=== PATIENT | female | born 2000 | race Caucasian/White ===

== ENCOUNTER 2020-04-27 14:32 | Outpatient (REF) | payer MEDICAID, SELFPAY ==
--- NOTE | 2020-04-27 15:48 | XR_ITS ---
EXAMINATION: BILATERAL KNEES. CLINICAL INFORMATION: Bilateral knee pain. COMPARISON: None TECHNIQUE: 4 views each knee. FINDINGS: LEFT KNEE: The tricompartment joint space is maintained. No visible fracture, loose bodies, bony erosive changes or joint effusion seen. RIGHT KNEE: There is tricompartment joint space is maintained. There is no visible acute fracture, dislocation or subluxation. The tricompartment joint space is maintained normal. The soft tissues are normal. XR/XR knee LT 3V IMPRESSION: Unremarkable bilateral knee exam.
--- NOTE | 2020-04-27 15:48 | XR_ITS ---
EXAMINATION: BILATERAL KNEES. CLINICAL INFORMATION: Bilateral knee pain. COMPARISON: None TECHNIQUE: 4 views each knee. FINDINGS: LEFT KNEE: The tricompartment joint space is maintained. No visible fracture, loose bodies, bony erosive changes or joint effusion seen. RIGHT KNEE: There is tricompartment joint space is maintained. There is no visible acute fracture, dislocation or subluxation. The tricompartment joint space is maintained normal. The soft tissues are normal. XR/XR knee RT 3V IMPRESSION: Unremarkable bilateral knee exam.
[2020-04-27 16:01] LABS: MANUAL DIFF FLAG NO
[2020-04-27 16:07] LABS: Basophils Percent Auto 0.5 % (0-2); Eosinophils Absolute Auto 0.2 X10*3/uL (0.0-0.4); Eosinophils Percent Auto 2.2 % (0-4); Hematocrit 43.4 % (37-47); Hemoglobin 14.7 g/dl (12.0-16.0); Imm Gran Abs Auto 0.03 X10*3/uL (0.00-0.03); Imm Gran Pct Auto 0.4 % (0.0-0.4); Lymphocytes Absolute Auto 2.8 X10*3/uL (1.2-4.9); Lymphocytes Percent Auto 33.1 % (20-40); Mean Corpuscular HGB Conc 33.9 g/dl (31.0-35.0); Mean Corpuscular Hemoglobin 30.4 pg (27.0-33.0); Mean Corpuscular Volume 89.7 fL (80-98); Mean Platelet Volume 9.7 fL (9.4-12.3); Monocytes Absolute Auto 0.6 X10*3/uL (0.1-1.2); Monocytes Percent Auto 7.7 % (2-11); Neutrophils Absolute Auto 4.7 X10*3/uL (2.0-8.3); Neutrophils Percent Auto 56.1 % (45-73); Platelet Count 327 X10*3/uL (160-400); Red Blood Count 4.84 X10*6/uL (4.20-5.50); Red Cell Distribution Width 11.9 % (11.0-16.0); White Blood Count 8.3 X10*3/uL (4.8-10.8)
[2020-04-27 16:28] LABS: Alanine Aminotransferase 67 U/L (0-31); Albumin Level 4.3 g/dL (3.5-5.0); Alkaline Phosphatase 141 U/L (39-117); Anion Gap 14 (12-20); Aspartate Amino Transferase 29 U/L (5-31); Bilirubin Total 0.6 mg/dL (0.0-1.0); Blood Urea Nitrogen 11 mg/dL (9-16); C Reactive Protein 0.34 mg/dL (< or = 0.50); Calcium 9.3 mg/dL (8.4-10.2); Carbon Dioxide 27 mmol/L (22-29); Chloride 103 mmol/L (96-108); Estimated Glomerular Filt Rate > 60; Glucose Random 113 mg/dL (60-115); Sodium 140 mmol/L (135-145); Total Protein 7.7 g/dL (6.5-8.0)
[2020-04-27 16:38] LABS: Rheumatoid Factor < 15.0 IU/mL (<15.0)
[2020-04-27 16:47] LABS: Thyroid Stimulating Hormone 1.71 uIU/mL (0.32-4.0)
[2020-04-27 17:00] LABS: Erythrocyte Sedimentation Rate 8 MM/HR (0-20)
[2020-04-28 15:28] LABS: Cyclic Citrullinated Peptide <16 UNITS
[2020-04-29 12:07] LABS: Lyme Abs Screen <0.90 index
[2020-04-30 13:18] LABS: Anti Nuclear Antibody Screen NEGATIVE (NEGATIVE)
[2020-05-01 12:17] LABS: Vitamin D 25-OH, D2 <4 ng/mL; Vitamin D 25-OH, D3 20 ng/mL; Vitamin D 25-OH, Total 20 ng/mL (30-100)
== END 2020-04-27 14:33 | disposition home or self-care (01) ==
LOC: HO.LAB 14:32
PROVIDERS: PCP Internal Medicine Geriatric Medicine; Visit Provider Student in an Organized Health Care Education/Training Program
DX: M25.50 Pain in unspecified joint (principal)
CPT/HCPCS: 36415; 73562; 80053; 82306; 84443; 85025; 85652; 86038; 86039; 86140; 86200; 86431; 86618; 99202

== ENCOUNTER → 2020-05-21 09:42 | Outpatient (BNVA) | payer MEDICAID, SELFPAY | PROVIDERS: PCP Internal Medicine Geriatric Medicine; Visit Provider Student in an Organized Health Care Education/Training Program ==

== ENCOUNTER 2020-08-05 12:04 | Outpatient (REF) | payer MEDICAID, SELFPAY ==
[2020-08-05 12:44] LABS: COVID-19 Test Negative (Negative); IDNOW Serial# 55D5AD1C
== END 2020-08-05 12:05 | disposition home or self-care (01) ==
LOC: HO.LAB 12:04
PROVIDERS: Visit Provider Internal Medicine
DX: Z20.822 Contact with and (suspected) exposure to COVID-19 (principal)
CPT/HCPCS: 36415; 87635; C9803

== ENCOUNTER 2020-09-09 13:06 | Outpatient (REF) | payer MEDICAID, SELFPAY ==
[2020-09-09 13:29] LABS: COVID-19 Test Negative (Negative); IDNOW Serial# 55D5AD1C
== END 2020-09-09 13:07 | disposition home or self-care (01) ==
LOC: HO.LAB 13:06
PROVIDERS: Visit Provider Internal Medicine
DX: Z20.822 Contact with and (suspected) exposure to COVID-19 (principal)
CPT/HCPCS: 36415; 87635; C9803

== ENCOUNTER 2022-08-04 00:41 | Emergency (ER) | payer MEDICAID, SELFPAY ==
[2022-08-04 00:48] VITALS: BP 148/85; PULSE 110; RESP 18; TEMP 37.5; O2SAT 96; BMI 38.2
--- NOTE | 2022-08-04 01:11 | ED.EAR ---
HPI - Ear Problem General Chief complaint: Ear Problems Stated complaint: fever/ear pain Time Seen by Provider: 08/04/22 01:03 Source: patient Mode of arrival: ambulatory Limitations: no limitations History of Present Illness HPI Narrative: 22-year-old female without significant medical history presents to the emergency department for evaluation of fatigue, malaise, nausea and vomiting x3 days and sudden-onset right ear pain since this morning. Patient reports she feels like she has an ear infection she is to get them frequently as a child. She reports subjective fevers and chills however has not taken her temperature. Patient denies chest pain, shortness of breath, hematemesis, hematochezia, melena, urinary changes, abdominal pain, headache, vision changes, dizziness and weakness. Tolerating p.o.. Related Data Home Medications Medication Instructions Recorded Confirmed ibuprofen 600 mg tablet 600 mg PO Q8H PRN 04/27/20 Previous Rx's Medication Instructions Recorded amoxicillin 875 mg-potassium 1 tab PO BID 10 days #20 tabs 08/04/22 clavulanate 125 mg tablet ketorolac 10 mg tablet 10 mg PO TID PRN pain 5 days #15 08/04/22 tabs ondansetron 4 mg disintegrating 4 mg PO Q6H PRN nausea and 08/04/22 tablet vomiting #14 tabs Allergies Allergy/AdvReac Type Severity Reaction Status Date / Time acetaminophen [From TYLENOL] AdvReac Severe RASH Verified 05/21/20 09:43 Review of Systems Review of Systems: Constitutional : No Weight loss, + Fever, + Chills, + Fatigue, + Malaise ENT/Mouth : No sore throat, No Rhinorrhea, + ear pain Eyes: No Eye Pain, No Swelling, No Redness Cardiovascular : No Chest Pain, No SOB, No Dyspnea on Exertion, No Orthopnea, No Edema, No Palpitations Respiratory : No Cough, No Sputum, No Wheezing Gastrointestinal : No Nausea, No Vomiting, No Diarrhea, No Constipation, No abdominal Pain, No Hematochezia, No Melena Genitourinary : No Dysuria, No Urinary Frequency, No Hematuria, Musculoskeletal : No joint pain, No Myalgias, No Joint Swelling Skin : No Skin Lesions, No rash Neuro : No Weakness, No Numbness, No Dizziness, No Headache Psych : No Anxiety/Panic, No Depression All other systems reviewed and are negative Yes all other systems are reviewed and are negative [facility] Past Medical History Attestation statement: The following information was validated with the patient. Source: old records reviewed and nursing notes reviewed Medical History No pertinent past medical history Surgical History H/O left knee surgery No significant past surgical history Family History Family History Mother No problems noted. Social History Social History Alcohol intake: never Advance Directives: No Advance Directives Information Provided: Yes Physical Exam Vital Signs: Vital Signs: Last Vital Signs Temp 99.5 F 08/04/22 00:48 Pulse 110 H 08/04/22 00:48 Resp 18 08/04/22 00:48 BP 148/85 H 08/04/22 00:48 Pulse Ox 96 08/04/22 00:48 O2 Del Method Room Air 08/04/22 00:48 BMI result Body Mass Index 38.2 vss Appearance: Alert.? Oriented X3.? No acute distress.? Head: Normocephalic, atraumatic, no step-offs or deformities Eyes: Pupils equal, round and reactive to light.? ENT: Pharynx normal.? Uvula midline. No signs of abscess. Normal tonsils bilaterally, no erythema or edema. Left ear with normal tympanic membrane, ear pain canal. Right ear with erythematous ear canal and bulging erythematous tympanic membrane. No pain with manipulation of external ears bilaterally. No mastoid tenderness. No foreign bodies are signs of perforated tympanic membrane. Neck: Normal inspection.? Neck supple.? CVS: Normal heart rate and rhythm.? Pulses normal.? Respiratory: No respiratory distress.? Breath sounds normal.? Abdomen: Soft and nontender.? Skin: Skin warm and dry.? Normal skin color.? Normal skin turgor.? Extremities: No lower extremity edema.? No calf ttp. 5/5 strength to bilateral upper and lower extremities Neuro: Oriented X 3.? No motor deficit.? No sensory deficit. CN 2-12 intact Course Reevaluation(s) Reevaluation #1: Patient given Augmentin and Toradol. Will be discharged home with same and will also be discharged home with Zofran for nausea and vomiting. Educated patient on diagnosis and treatment plan, answered all question, patient verbalizes understanding. At this time patient will be discharged home, advised to return with new or worsening symptoms. Educated on worrisome signs and symptoms and when to return. At this time I feel comfortable discharge home. Time: 01:16 Medical Decision Making Medical Decision Making [facility] Narrative: 0110 22-year-old female presents for evaluation of right ear pain, fatigue, malaise, nausea and vomiting. Physical exam significant for Pharynx normal.? Uvula midline. No signs of abscess. Normal tonsils bilaterally, no erythema or edema. Left ear with normal tympanic membrane, ear pain canal. Right ear with erythematous ear canal and bulging erythematous tympanic membrane. No pain with manipulation of external ears bilaterally. No mastoid tenderness. No foreign bodies are signs of perforated tympanic membrane. Lungs clear. Regular rate and rhythm. Abdomen soft nontender nondistended. Neuro nonfocal. Vital signs stable. History and physical exam consistent with otitis media. No signs of otitis externa, malignant otitis, mastoiditis. No signs of peritonsillar abscess, epiglottitis. Nausea and vomiting likely viral. No signs of acute abdomen, appendicitis, cholecystitis, obstruction, pancreatitis or diverticulitis. Plan at this time will give patient 1st dose of Augmentin in Toradol for pain. Differential Diagnosis Differential Diagnoses: The differential diagnosis associated with the presentation includes History and physical exam consistent with otitis media. No signs of otitis externa, malignant otitis, mastoiditis. No signs of peritonsillar abscess, epiglottitis. Nausea and vomiting likely viral. No signs of acute abdomen, appendicitis, cholecystitis, obstruction, pancreatitis or diverticulitis. Admission/Observation Consideration of admission/observation: Escalation of care including admission/observation considered Core Measures AMI core measures followed: Yes Measure exclusions: not indicated Critical Care Time Critical Care Time Critical Care Time: No Discharge Plan Discharge Clinical Impression: Otitis media, Nausea & vomiting Patient Disposition: Home, Self-Care Instructions: Ear Infection (ED) Additional Instructions: Take your medications as prescribed. If you were prescribed antibiotics today, it is important that you take your medication to their entirety, do not skip any doses, do not finish them early. Follow-up with your primary care provider this week. Return to the emergency department with new or worsening symptoms. Such as fevers, chills, chest pain, shortness of breath, nausea, vomiting, dizziness, headache, vision changes, lethargy In case of emergency call 911 Toradol has been sent to your pharmacy, you tolerated this well in the department. Please take this as prescribed do not take this with ibuprofen, or other NSAIDs, do not mix this with alcohol. Side effects of this medication including increased risk for bleeding and possible kidney injury. Prescriptions: New amoxicillin-pot clavulanate 875-125 mg tablet 1 tab PO BID 10 Days Qty: 20 0RF ketorolac 10 mg tablet 10 mg PO TID PRN (Reason: pain) 5 Days Qty: 15 0RF ondansetron 4 mg tablet,disintegrating 4 mg PO Q6H PRN (Reason: nausea and vomiting) Qty: 14 0RF No Action ibuprofen 600 mg tablet 600 mg PO Q8H PRN Referrals: [facility] [Primary Care Provider] - 2 days Dim[facility] Lopez [Physician] - 1 week Stand Alone Forms: Work/School Release
[2022-08-04] MEDS: Ketorolac Tromethamine 30 MG/ML VIAL IM (01:14)
[2022-08-04] MEDS: Amoxicillin/Potassium Clav 875 MG TABLET PO (01:15)
[2022-08-04 01:30] LABS: COVID-19 Test Negative (Negative); IDNOW Serial# 08D9AD1C; IDNOW Serial# BCCEAD1C; Influenza A Negative (Negative); Influenza B2 Negative (Negative)
== END 2022-08-04 01:18 | disposition home or self-care (01) ==
PROVIDERS: Emergency Provider Internal Medicine
DX: H66.91 Otitis media, unspecified, right ear (principal); R11.2 Nausea with vomiting, unspecified; Z20.822 Contact with and (suspected) exposure to COVID-19
CPT/HCPCS: 87502; 87635; 96372; 99283; 99284; J1885

== ENCOUNTER 2023-10-11 22:33 | Emergency (ER) | payer MEDICAID, SELFPAY ==
[2023-10-11 22:37] VITALS: BP 148/96; PULSE 74; RESP 18; TEMP 36.7; O2SAT 98; BMI 39.7
--- NOTE | 2023-10-12 00:26 | ED.DENTAL ---
HPI - Dental/Oral General Chief complaint: Dental/Oral Stated complaint: gum infection on right side Time Seen by Provider: 10/12/23 00:05 Source: patient Mode of arrival: ambulatory Limitations: no limitations History of Present Illness HPI Narrative: Patient is a 23-year-old female who presents emergency department for evaluation of persistent right upper dental pain. Onset of symptoms was 1 week ago. She presented to her dentist today and was given a course of antibiotics; taking amoxicillin 3 times daily. Was advised to follow-up as she requires a root canal. She reports that her pain continues despite taking the antibiotics and using ibuprofen 300 mg every 8 hours. She is unable to take Tylenol due to an allergy. She is trialed [id number] Orajel without any improvement. Related Data Home Medications ?Medication ?Instructions ?Recorded ?Confirmed ibuprofen 600 mg tablet 600 mg PO Q8H PRN 04/27/20 Previous Rx's ?Medication ?Instructions ?Recorded amoxicillin 875 mg-potassium 1 tab PO BID 10 days #20 tabs 08/04/22 clavulanate 125 mg tablet ketorolac 10 mg tablet 10 mg PO TID PRN pain 5 days #15 08/04/22 tabs ondansetron 4 mg disintegrating 4 mg PO Q6H PRN nausea and 08/04/22 tablet vomiting #14 tabs oxycodone 5 mg tablet 5 mg PO Q6H PRN pain #7 tabs 10/12/23 Allergies Allergy/AdvReac Type Severity Reaction Status Date / Time acetaminophen [From TYLENOL] AdvReac Severe RASH Verified 10/11/23 22:38 Review of Systems Review of Systems: Yes all other systems are reviewed and are negative [facility] Past Medical History Attestation statement: The following information was validated with the patient. Source: old records reviewed Medical History No pertinent past medical history Surgical History H/O left knee surgery No significant past surgical history Family History Family History Mother No problems noted. Social History Social History Alcohol intake: never Do you have a plan to hurt others: No Plan Physical Exam Vital Signs: Vital Signs: Last Vital Signs Temp 98.0 F 10/11/23 22:37 Pulse 74 10/11/23 22:37 Resp 18 10/11/23 22:37 BP 148/96 H 10/11/23 22:37 Pulse Ox 98 10/11/23 22:37 O2 Del Method Room Air 10/11/23 22:37 BMI result Body Mass Index 39.7 Appearance: Alert.?Oriented to person, place and time. No acute distress.?Normal affect. Eyes: Pupils equal, round and reactive to light.? ENT: Pharynx normal.? Uvula midline. No trismus. No drooling. Tooth #2 with dental luis, surrounding gingival erythema, no areas of fluctuance or obvious abscess, pain upon palpation of the right upper gumline diffusely ? Neck: Normal inspection.? Neck supple.? No cervical adenopathy? CVS: Heart sounds normal. Normal heart rate and rhythm.? Pulses normal.?? Respiratory: No respiratory distress.? Lung sounds clear to auscultation bilaterally?? Skin: Skin warm and dry.? Normal skin color.? Extremities: No lower extremity edema.? Neuro: Moves all extremities spontaneously. Sensation intact bilaterally. Ambulates with normal steady gait. Medical Decision Making Medical Decision Making MDM Narrative: Patient is a 23-year-old female who presents emergency department for evaluation of dental pain as per HPI. On examination, does not have evidence consistent with dental abscess, not consistent with Michael's angina. Despite using anti-inflammatories for pain persists, she has taken 3 doses of antibiotic. We discussed continued use of antibiotic as prescribed, ibuprofen, in addition will give a short prescription for oxycodone. She was advised that she would need to follow-up outpatient with her dentist as scheduled. Differential Diagnosis Differential Diagnoses: The differential diagnosis associated with the presentation includes (Dental luis, dental abscess, gingivitis) Independent Historian Clinical information obtained from an independent historian. History obtained from or confirmed by: Spouse External Record Review External record reviewed: Other ([employer] reviewed, no conflicts) Discharge Plan Discharge Clinical Impression: Dental caries Patient Disposition: Home, Self-Care Additional Instructions: You can take ibuprofen 200 mg, 3 tablets (600mg) every 6-8 hours as needed for pain. For pain unrelieved by ibuprofen, prescription for oxycodone has been sent to your pharmacy. This is a narcotic medication. It may make you drowsy. You should not drive, drink alcohol, or work while taking this medication. Please continue to take the antibiotics as prescribed by your dentist, be sure to complete the entire course. Follow-up with your dentist as scheduled. You may return back to emergency department with any new or worsening symptoms or concerns. Prescriptions: New oxycodone 5 mg tablet 5 mg PO Q6H PRN (Reason: pain) Qty: 7 0RF Rx Instructions: Partial Fill upon patient request. No Action amoxicillin-pot clavulanate 875-125 mg tablet 1 tab PO BID 10 Days Qty: 20 0RF ketorolac 10 mg tablet 10 mg PO TID PRN (Reason: pain) 5 Days Qty: 15 0RF ondansetron 4 mg tablet,disintegrating 4 mg PO Q6H PRN (Reason: nausea and vomiting) Qty: 14 0RF ibuprofen 600 mg tablet 600 mg PO Q8H PRN Referrals: [facility] [Primary Care Provider] - Print Language: Bolivian
[2023-10-12 01:22] VITALS: BP 148/96; PULSE 74; RESP 18; TEMP 36.7; O2SAT 98
== END 2023-10-12 01:22 | disposition home or self-care (01) ==
PROVIDERS: Emergency Provider Internal Medicine
DX: K02.9 Dental caries, unspecified (principal)
CPT/HCPCS: 99282; 99283

== ENCOUNTER 2023-10-24 10:20 | Outpatient (REF) | payer MEDICAID, SELFPAY ==
[2023-10-24 13:16] LABS: MANUAL DIFF FLAG NO
[2023-10-24 13:27] LABS: Basophils Absolute Auto 0.1 X10*3/uL (0.0-0.2); Basophils Percent Auto 0.7 % (0-2); Eosinophils Absolute Auto 0.2 X10*3/uL (0.0-0.4); Eosinophils Percent Auto 2.1 % (0-4); Hematocrit 42.9 % (37.0-47.0); Hemoglobin 14.4 g/dl (12.0-16.0); Imm Gran Abs Auto 0.09 X10*3/uL (0.00-0.03); Imm Gran Pct Auto 1.2 % (0.0-0.4); Lymphocytes Absolute Auto 2.1 X10*3/uL (1.2-4.9); Lymphocytes Percent Auto 27.4 % (20-40); Mean Corpuscular HGB Conc 33.6 g/dl (31.0-35.0); Mean Corpuscular Hemoglobin 30.3 pg (27.0-33.0); Mean Corpuscular Volume 90.3 fL (80.0-98.0); Monocytes Absolute Auto 0.6 X10*3/uL (0.1-1.2); Monocytes Percent Auto 7.3 % (2-11); Neutrophils Absolute Auto 4.7 x10*3/uL (2.0-8.3); Neutrophils Percent Auto 61.3 % (45-73); Platelet Count 309 X10*3/uL (160-400); Red Blood Count 4.75 X10*6/uL (4.20-5.50); Red Cell Distribution Width 12.6 % (11.0-16.0); White Blood Count 7.7 X10*3/uL (4.8-10.8)
[2023-10-24 13:47] LABS: Alanine Aminotransferase 45 U/L (0-31); Albumin Level 4.1 g/dL (3.5-5.0); Alkaline Phosphatase 102 U/L (39-117); Anion Gap 14 (12-20); Aspartate Amino Transferase 22 U/L (5-31); Bilirubin Total 0.4 mg/dL (0.0-1.0); Blood Urea Nitrogen 11 mg/dL (9-16); Calcium 9.7 mg/dL (8.4-10.2); Carbon Dioxide 25 mmol/L (22-29); Chloride 105 mmol/L (96-108); Cholesterol 145 mg/dL (<200); Estimated Glomerular Filt Rate > 60; Glucose Random 90 mg/dL (60-115); HDL Cholesterol 34 mg/dL (>40); LDL Cholesterol Calculated 79 mg/dL (<100); Potassium 3.9 mmol/L (3.3-5.1); Sodium 140 mmol/L (135-145); Total Protein 7.9 g/dL (6.5-8.0); Triglycerides 162 mg/dL (<150)
[2023-10-24 13:50] LABS: Estimated Average Glucose 105 mg/dL; Hemoglobin A1c % 5.3 % (<6.0)
[2023-10-24 14:02] LABS: TSH reflex Free T4 1.81 uIU/mL (0.32-4.0)
[2023-10-26 22:19] LABS: TS Negative Control Passed; TS Panel A 0; TS Panel B 1; TS Positive Control Passed; TSpotTB Negative (Negative)
== END 2023-10-24 10:21 | disposition home or self-care (01) ==
LOC: HO.HHCL 10:20
PROVIDERS: Visit Provider Internal Medicine Geriatric Medicine
DX: Z00.00 Encounter for general adult medical examination without abnormal findings (principal); Z28.21 Immunization not carried out because of patient refusal; M22.2X1 Patellofemoral disorders, right knee; M22.2X2 Patellofemoral disorders, left knee; M79.89 Other specified soft tissue disorders; E66.01 Morbid (severe) obesity due to excess calories; Z11.1 Encounter for screening for respiratory tuberculosis
CPT/HCPCS: 36415; 80053; 80061; 83036; 84443; 85025; 86481

== ENCOUNTER 2024-11-12 10:39 | Outpatient (REF) | payer MEDICAID, SELFPAY ==
[2024-11-12 11:43] LABS: Hemoglobin A1C 135.2236 umol/L; Total Hemoglobin (HGBA1C) 3695.0030 umol/L
[2024-11-12 12:10] LABS: Alanine Aminotransferase 51 U/L (0-31); Albumin Level 4.4 g/dL (3.5-5.0); Alkaline Phosphatase 121 U/L (39-117); Anion Gap 11 (12-20); Aspartate Amino Transferase 29 U/L (5-31); Blood Urea Nitrogen 10 mg/dL (9-16); Calcium 9.4 mg/dL (8.4-10.2); Carbon Dioxide 24 mmol/L (22-29); Chloride 107 mmol/L (96-108); Cholesterol 151 mg/dL (<200); Estimated Glomerular Filt Rate > 60; HDL Cholesterol 32 mg/dL (>40); Potassium 4.2 mmol/L (3.3-5.1); Sodium 138 mmol/L (135-145); Total Protein 8.0 g/dL (6.5-8.0); Triglycerides 169 mg/dL (<150)
[2024-11-15 08:28] LABS: TS Negative Control Passed; TS Panel A 0; TS Panel B 0; TS Positive Control Passed; TSpotTB Negative (Negative)
== END 2024-11-12 10:40 | disposition home or self-care (01) ==
LOC: HO.HHCL 10:39
PROVIDERS: PCP Internal Medicine Geriatric Medicine; Visit Provider Internal Medicine Geriatric Medicine
DX: Z13.1 Encounter for screening for diabetes mellitus (principal); Z13.220 Encounter for screening for lipoid disorders; Z11.1 Encounter for screening for respiratory tuberculosis; R25.1 Tremor, unspecified
CPT/HCPCS: 36415; 80053; 80061; 83036; 84443; 86481